=== PATIENT | male | born 1980 | race Caucasian/White ===

== ENCOUNTER → 2021-04-17 | Outpatient (CLI) | payer OTHER ==
[~2021-04-17] MED LIST: GADOTERATE 5 MMOL/10ML VIAL. INT ART ONE; IOHEXOL 300 MG/ML 50 ML VIAL. INT ART ONE; LIDOCAINE 1% Multi-Dose 20 ML VIAL. ID ONE
--- NOTE | 2021-04-17 15:53 | KCIC ---
EXAM: Fluoroscopic guided left shoulder injection for MR arthrography. HISTORY: Pain. TECHNIQUE: The risks of the procedure were discussed with the patient and written and verbal consent was obtained. A time out was performed. Fluoroscopic imaging of the left shoulder was performed and a site overlying the joint space was selected for needle entry. The skin overlying this region was douglas rilely prepped, draped and infiltrated with 1% lidocaine. A spinal needle was then advanced into the joint space with fluoroscopic guidance. Appropriate needle tip positioning was confirmed with injecti on of 3 cc Isovue 300 contrast. Subsequently, 10 cc of a 1:200 mixture of gadolinium contrast in 1% l idocaine and Isovue 300 contrast was injected into the joint space. Fluoroscopic images demonstrate i ntraarticular accumulation of contrast. The needle was removed and a sterile bandage was placed at [facility] needle entry site. The patient tolerated the procedure without difficulty and was transferred to [facility] MR suite for the post injection MR portion of the exam. The total fluoroscopy time was 17 seconds a nd a single fluoroscopic image was obtained. IMPRESSION: Successful fluoroscopic guided left shoulder injection for MR arthrography. Please refer to the separate MR arthrogram report for further evaluation details. Electronically signed by: Beth Perez MD (04/17/2021 3:50 PM) [id number]
--- NOTE | 2021-04-17 17:12 | KCIC ---
Examination: MR left shoulder arthrogram HISTORY: History of left shoulder pain for 2 months COMPARISON: None TECHNIQUE: Multiplanar, multisequence MR imaging of the following are performed after arthrogram inje ction Findings: The long head of the biceps tendon within the bicipital groove. The attachment of the long head the b iceps tendon to the superior labral anchor grossly appears intact. The attachment of the subscapulari s tendon, supraspinatus, infraspinatus tendon grossly appears intact. Minimal increased T2 signal jerman ntified in the supraspinatus tendon likely mild tendinosis. Minimal increased T2 signal identified in the superior labrum, best visualized on series 6 image 10.. Increased T2 signal identified in the ac romioclavicular joint. The muscle bulk grossly appears unremarkable. Acromion is type II. IMPRESSION: 1. Mild increased T2 signal identified superiorly likely small SLAP tear. 2. Mild increased T2 signal/edema identified in the acromioclavicular joint could be secondary to inj ury or reactive changes. Electronically signed by: Yonas López MD (04/17/2021 5:10 PM) [id number]
== END | disposition home or self-care (01) ==
LOC: KCIC 13:57
PROVIDERS: ATTEND Family Medicine
DX: M25.512 Pain in left shoulder (principal)
CPT/HCPCS: 23350; 73222; 77002; A9575; J3490; Q9967